=== PATIENT | female | born 1970 | race African-American/Black ===

== ENCOUNTER 2017-06-12 07:41 | Day surgery (SDC) | payer OTHER ==
[~2017-06-12] VITALS: Ht 152.4 cm; Wt 82.4 kg
[2017-06-12] VITALS (14 sets, daily range): BP systolic 121–160; BP diastolic 74–87; PULSE 18–94; RESP 16–24; Ht 152.4 cm; Wt 82.4 kg
[2017-06-12] MEDS ORDERED: CIPROFLOXACIN 400MG/D5W 200 ML ONE (09:41)
[2017-06-12] MEDS ORDERED: PROPOFOL 20 ML ONE (09:42)
[2017-06-12] MEDS ORDERED: GLYCOPYRROLATE 0.4 MG INJ ONE ×2 (09:42→11:12)
[2017-06-12] MEDS ORDERED: LIDOCAINE 2% (SDV) 5 ML INJ ONE (09:42)
[2017-06-12] MEDS ORDERED: SUCCINYLCHOLINE CHLORIDE 100 MG/5 ML SYG IV ONE (09:42)
[2017-06-12] MEDS ORDERED: ROCURONIUM 50 MG INJ ONE (09:42)
[2017-06-12] MEDS ORDERED: NEOSTIGMINE 3 MG/3 ML SYRINGE ONE ×2 (09:42→11:12)
[2017-06-12] MEDS ORDERED: MEPERIDINE 100 MG INJ ONE (09:43)
[2017-06-12] MEDS ORDERED: IOHEXOL 300MG/ML 30 ML BTL ONE (09:43)
[2017-06-12] MEDS ORDERED: ONDANSETRON 4 MG INJ ONE (10:36)
[2017-06-12] MEDS ORDERED: METOCLOPRAMIDE 10 MG INJ ONE (10:36)
--- NOTE | 2017-06-12 11:41 | HPN ---
Date/Time of Note Date/Time of Note DATE: 06/12/17 TIME: 11:41 Interval H&P Admission Note Pt. seen H&P reviewed: No system changes OLGA NANCE Jun 12, 2017 11:41
--- NOTE | 2017-06-12 11:44 | OPR ---
Date/Time of Note Date/Time of Note DATE: 06/12/17 TIME: 11:41 Operative Report Preoperative Diagnosis Bladder stone and encrusted stent Postoperative Diagnosis same Operation/Procedure Performed Endoscopic removal of bladder stone (5cm) with holmium laser, removal of left ureteral stent, left retrograde pyelogram, left ureteroscopy, insertion of left stent Surgeon Kapil Gas Examiner None Anesthesia Type: general Estimated Blood Loss: none Transfusion none Specimen stent and portions of bladder stone Grafts/Implants none Tubes/Drains 24 cm, 4.8 f stent 18 f al Complications none Pt Condition Post Procedure: stable Disposition: PACU Indications bladder stone and encrusted stent Procedure Description DICTATION [id number] OLGA NANCE Jun 12, 2017 11:44
--- NOTE | 2017-06-12 11:47 | PDOCDIS ---
Discharge Instructions DIAGNOSIS Discharge Diagnosis Bladder stone and encrusted ureteral stent CONDITION Patient Condition: Good HOME CARE INSTRUCTIONS: Diet Instructions: Regular ACTIVITY: Activity Restrictions: Slowly Increase Activity Bathing Restrictions: Shower FOLLOW UP/APPOINTMENTS Follow-up Plan Follow up in office next week for removal of al and removal of ureteral stetn , call for time and date OTHER ORDERS: Other Orders: Al to leg bag, encourage hydration SCHOOL/WORK RELEASE May return to School/Work on: Jun 19, 2017 (OK TO RETURN TO WORK AFTER AL AND STENT REMOVED BY DR NANCE) OLGA NANCE Jun 12, 2017 11:47
--- NOTE | 2017-06-12 11:54 | RADRPT ---
PROCEDURE: Intraoperative imaging of the abdomen and pelvis with fluoroscopy. CLINICAL INDICATION: Abdominal pain. Intraoperative. TECHNIQUE: 2 images of the abdomen and pelvis were obtained in the operating room with an image in tensifier. No radiologist was in attendance. Fluoroscopy time is 28 seconds. COMPARISON: No prior study is available for comparison. FINDINGS: Images demonstrate a left ureteral stent in satisfactory position. There is a large opacity in the u pper left kidney which may be due to contrast or a large stone. There is an inferior vena cava filte r. IMPRESSION: 1. Satisfactory intraoperative imaging of the abdomen and pelvis. RPTAT: QQ .Mikel Miller MD, MD Date Time Electronically viewed and signed by .Mikel Miller MD, MD on 06/12/2017 11:54 .R/
[2017-06-12] MEDS ORDERED: FENTAnyl 50 MCG/ML VIAL IV PRN ×3 (12:00)
[2017-06-12] MEDS ORDERED: MEPERIDINE 25 MG INJ IV PRN (12:00)
[2017-06-12] MEDS ORDERED: OXYCODONE/ACETAMINOPHEN (5/325) TAB PO PRN ×2 (12:00)
[2017-06-12] MEDS ORDERED: LABETALOL HCL 20MG INJ IV PRN (12:00)
[2017-06-12] MEDS ORDERED: hydrALAzine 20 MG INJ IV PRN (12:00)
[2017-06-12] MEDS ORDERED: HYDROmorphONE (0.2 MG/ML) 10ML SYG IV PRN ×3 (12:00)
[2017-06-12] MEDS ORDERED: METOCLOPRAMIDE 10 MG INJ IV PRN (12:00)
[2017-06-12] MEDS ORDERED: MIDAZOLAM 1 MG/ML 2 ML INJ IV PRN (12:00)
[2017-06-12] MEDS ORDERED: EPHEDrine SULFATE 50 MG/5 ML SYG IV PRN (12:00)
[2017-06-12] MEDS ORDERED: ONDANSETRON 4 MG INJ IV PRN (12:00)
[2017-06-12] MEDS ORDERED: DIPHENHYDRAMINE 50 MG INJ IV PRN (12:00)
--- NOTE | 2017-06-12 12:52 | OPR ---
DATE OF OPERATION: PREOPERATIVE DIAGNOSIS: Large bladder stone, encrusted left ureteral stent. POSTOPERATIVE DIAGNOSIS: Encrusted left ureteral stent, 5 cm bladder stone. PROCEDURE: Cystoscopy, endoscopic holmium laser lithotripsy of bladder stone, removal of left urete ral stent, left retrograde pyelogram, ureteroscopy, insertion, left ureteral stent. SURGEON: Dr. Dick. ANESTHESIA: General. COMPLICATIONS: None. BRIEF HISTORY: [place] is a 46-year-old female with a retained stent who presents for attempt to re move stent, removal of large bladder stone, possible ureteroscopic stone extraction and reinsertion of stent. How the procedure is performed, potential complications, side effects, importance of removal of a st ent within a timely period (3 months), have all been discussed. Preoperative consent has been revie wed and signed. For more information on her history and physical and consultation, please refer to preoperative evaluation. DESCRIPTION OF PROCEDURE: The patient was brought into the operating room and placed on the operati ng room table in the supine lithotomy position. She was prepped and draped in the usual fashion. A fter anesthesia was induced, a timeout was undertaken. Appropriate pressure points were padded and she received preoperative antibiotic therapy. Sequential compression devices were applied. A KUB w ith obliques was obtained which demonstrates the left ureteral stent to be in proper anatomical posi tion. No stone burden could be appreciated. Vaginal examination demonstrates a grade II cystocele. Rigid cystoscopy was undertaken with a 12-degree and 30-degree angle lens. A 5 cm bladder stone i s noted to fill out her bladder and obscure the trigone. This drops into her cystocele. The stone is noted to abut up to the left ureteral orifice where there is a large amount of inflammatory respo nse protruding from the left ureteral orifice was a stent of which 1 mm was only able to be initiall y visualized as a bladder stone fills out her bladder. So as to avoid migration of her stent, utilizing flexible graspers, I was able to easily manipulate the left ureteral stent into the bladder under fluoroscopic guidance, without any noted resistance, the stent was brought into the bladder. A repeat KUB was obtained and no interval change could be a ppreciated except the stent has been placed into the bladder. Under direct vision with a partially filled bladder, endoscopic holmium laser lithotripsy was undertaken with a continuous resectoscope, utilizing a 910 micron holmium fiber, the lowest setting possible was utilized so as to minimally di sturb the bladder. Of note, the bladder lining has marked hypererythema. Endoscopic holmium laser lithotripsy was undertaken, which allowed for complete fragmentation of the stone with the stone fra gments then being removed with an [employer] evacuator. During this period of time, the stent was broken into several pieces. The stent was additionally noted to be embedded into the stone. All portions of the stent were subsequently removed, at this juncture, no further stone burden in the bladder co uld be appreciated. Erythema of the bladder was noted and no drainage from the left kidney was appr eciated. No perforation of bladder could be noted. A left retrograde pyelogram was undertaken demonstrating a markedly dilated renal pelvis and major a nd minor calices with multiple filling defects throughout the entire collecting system. Due to the above findings, ureteroscopy was undertaken. A wire was placed up to the level of the upper pole an d the semirigid ureteroscope was then inserted into the distal ureter. A marked amount of ureteriti s and inflammation of the ureter could be appreciated and the ureteroscope was only able to be inser timothy approximately 2 cm. Due to obstructive findings, it was decided not to perform any further prox imal ureteroscopy. Overlying the wire, a 24 cm 4.8 ureteral stent was inserted with the proximal as pect coiling within the renal pelvis and the distal aspect coiling within the bladder. Attached to the distal end was at a taper string. At this point, cloudy pink urine was noted to extrude from th e left ureteral orifice consistent with obstruction and thus a urine culture was obtained. A Arzate catheter was inserted into her bladder to allow for adequate drainage. She returned to the re covery room in stable condition, will be discharged to home on antibiotic therapy and pain control. She will follow up in the office next week for a trial of void and cystoscopy, stent removal. No c omplications were noted. Dictated By: OLGA LUNA/NTS Conf#: [id number] DID#: [id number]
== END 2017-06-12 14:06 | disposition home or self-care (01) ==
LOC: SDS 07:41 → EDSEX 14:00 → SDS 14:06
PROVIDERS: ATTEND Urology
DX: N20.0 Calculus of kidney (principal); N21.0 Calculus in bladder; E11.9 Type 2 diabetes mellitus without complications; I10 Essential (primary) hypertension; E78.5 Hyperlipidemia, unspecified; Z86.718 Personal history of other venous thrombosis and embolism
CPT/HCPCS: 52317; 52332; 74420; 87086; 88300; J0744; J1170; J2175; J2405; J2710; J2765; Q9967; Z7512; Z7610

== ENCOUNTER 2018-03-26 07:54 | Day surgery (SDC) | END 2018-03-27 17:49 | disposition home or self-care (01) ==